=== PATIENT | female | born 1940 | race Caucasian/White ===

== ENCOUNTER 2017-01-22 09:40 | Emergency (ER) | payer MEDICARE, OTHER ==
[~2017-01-22] VITALS: Ht 149.9 cm; Wt 65.0 kg
[2017-01-22 09:50] VITALS: Ht 149.9 cm; Wt 65.0 kg
[2017-01-22] MEDS ORDERED: EPINEPHrine 1 MG INJ IM STA (09:52)
[2017-01-22] MEDS ORDERED: FAMOTIDINE 20 MG INJ IV STA (09:52)
[2017-01-22] MEDS ORDERED: METHYLPREDNISOLONE 125 MG INJ IV STA (09:52)
--- NOTE | 2017-01-22 10:01 | ERD ---
ER Documentation Chief Complaint Chief Complaint Shortness of breath HPI 76-year-old female with a history of hypertension, osteoporosis and anxiety presents to the ED via rescue ambulance for evaluation of shortness of breath. After taking alendronate this morning, she has been taking every 15 days for many years, she experienced acute onset of generalized erythema and pruritus. Daughter gave Benadryl with the patient began to experience worsening shortness of breath and paramedics were called. On arrival her O2 saturation was 80-85% but improved to 98% with supplemental oxygen. She continues to complain of severe, generalized pruritus but denies chest pain or palpitations. No tongue or swelling. No leg pain or swelling. No headache or neck pain. Denies visual changes, focal weakness or numbness. URI symptoms, fevers or chills. ROS All systems reviewed and are negative except as per history of present illness. Medications Home Meds Reported Medications Alendronate Sodium* (Fosamax*) 70 Mg Tablet, 70 MG PO Q7D, #4 TAB 01/22/17 Clopidogrel Bisulfate (Clopidogrel) 75 Mg Tablet, 75 MG PO DAILY, #30 TAB 01/22/17 Amlodipine Besylate* (Amlodipine Besylate*) 10 Mg Tablet, 10 MG PO DAILY, #30 TAB 01/22/17 Simvastatin* (Zocor*) 20 Mg Tablet, 20 MG PO QHS, #30 TAB 01/22/17 Benazepril Hcl* (Benazepril Hcl*) 20 Mg Tablet, 20 MG PO DAILY, #30 TAB 01/22/17 Metoprolol Succinate* (Toprol XL*) 50 Mg Tab.er.24h, 50 MG PO DAILY, #30 TAB 01/22/17 Discontinued Reported Medications Clopidogrel Bisulfate (Clopidogrel) 75 Mg Tablet, 75 MG PO DAILY, #30 TAB 01/22/17 Allergies Allergies: Coded Allergies: No Known Allergy (Unverified , 01/22/17) PMhx/Soc Reviewed in chart. As per HPI. Lives with family. History of Surgery: No Anesthesia Reaction: No Hx Neurological Disorder: No Hx Respiratory Disorders: No Hx Cardiac Disorders: Yes (Hypertension) Hx Psychiatric Problems: No Hx Miscellaneous Medical Probl: Yes (Osteoporosis) Hx Alcohol Use: No Hx Substance Use: No Hx Tobacco Use: No FmHx No family history relevant to presenting complaint. Physical Exam Vitals Vital Signs Date Time Temp Pulse Resp B/P Pulse Ox O2 Delivery O2 Flow Rate FiO2 01/22/17 12:39 78 18 121/59 98 Room Air 01/22/17 10:12 Nasal Cannula 2.0 01/22/17 09:50 98.1 53 16 72/44 93 Physical Exam Const: Alert, severe distress Head: Atraumatic Eyes: Normal Conjunctiva. No chemosis. No periorbital swelling. ENT: Normal External Ears, Nose and Mouth. No lip, tongue or uvular swelling. Neck: Full range of motion. Nontender. No stridor. Resp: Bs are equal and clear to auscultation bilaterally Cardio: Regular rate and rhythm, no murmurs Abd: Soft, obese, non tender, non distended. Normal bowel sounds Skin: diffuse erythema but no rash or urticaria Back: No midline or flank tenderness Ext: No cyanosis, or edema Neur: Awake and alert. No focal deficit observed Psych: Cooperative, anxious Result Diagram: 01/22/17 1002 01/22/17 1002 Results 24 hrs Laboratory Tests Test 01/22/17 10:02 White Blood Count 5.510^3/ul Red Blood Count 4.9910^6/ul Hemoglobin 13.5g/dl Hematocrit 42.4% Mean Corpuscular Volume 85.0fl Mean Corpuscular Hemoglobin 27.1pg Mean Corpuscular Hemoglobin Concent 31.8g/dl Red Cell Distribution Width 13.2% Platelet Count 51187^3/UL Mean Platelet Volume 11.3fl Neutrophils % 44.2% Lymphocytes % 41.7% Monocytes % 9.4% Eosinophils % 3.6% Basophils % 0.7% Nucleated Red Blood Cells % 0.0/100WBC Neutrophils # 2.410^3/ul Lymphocytes # 2.310^3/ul Monocytes # 0.510^3/ul Eosinophils # 0.210^3/ul Basophils # 0.010^3/ul Nucleated Red Blood Cells # 0.010^3/ul D-Dimer 692.73ng/ml D-Dimer Comment Sodium Level 141mmol/L Potassium Level 3.3mmol/L Chloride Level 107mmol/L Carbon Dioxide Level 22mmol/L Anion Gap 15 Blood Urea Nitrogen 15mg/dl Creatinine 0.90mg/dl Glucose Level 161mg/dl Calcium Level 9.1mg/dl Troponin I < 0.012ng/ml Current Medications Medications (Trade) Dose Ordered Sig/Tom Route PRN Reason Start Time Stop Time Status Last Admin Dose Admin Epinephrine (EPINEPHrine) 0.5 mg ONCE STAT IM 01/22/17 09:52 01/22/17 09:57 DC 01/22/17 10:08 Famotidine (Pepcid Iv) 20 mg ONCE STAT IV 01/22/17 09:52 01/22/17 09:57 DC 01/22/17 10:08 Methylprednisolone Sodium Succinate (Solu-Medrol) 125 mg ONCE STAT IV 01/22/17 09:52 01/22/17 09:57 DC 01/22/17 10:07 Potassium Chloride (Klor-Con 20) 40 meq ONCE STAT PO 01/22/17 11:25 01/22/17 11:27 DC 01/22/17 11:42 Ondansetron HCl (Zofran Inj) 4 mg ER BRIDGE PRN IV NAUSEA AND/OR VOMITING 01/22/17 13:30 01/22/17 14:07 DC Acetaminophen (Tylenol Tab) 650 mg ER BRIDGE PRN PO MILD PAIN/FEVER 01/22/17 13:30 01/22/17 14:07 DC LABS: Mild hypokalemia otherwise unremarkable EKG: TIME: 10:18. Sinus bradycardia. Ventricular rate 46. Normal VT and QRS. Q waves in leads I, aVL, V1 and V2. No acute ST segment elevation or depression. No ectopy. EP Interpretation: Abnormal EKG. IMAGING: PROCEDURE: Chest x-ray CLINICAL INDICATION: Shortness of breath TECHNIQUE: Chest single view COMPARISON: None FINDINGS: There is mild cardiomegaly and moderate atherosclerotic aortic calcification.. The pulmonary vessels are normal in caliber. The lungs are clear. The costophrenic angles are sharp. The visualized bony thorax is unremarkable. IMPRESSION: No acute cardiopulmonary disease. Mild cardiomegaly and moderate atherosclerotic aortic calcification RPTAT: HH .Jr Dyer MD, Date Time Electronically viewed and signed by .Jr Dyer MD, on 01/22/2017 10:20 .W/ PROCEDURE: US Lower extremity Venous. CLINICAL INDICATION: Swelling and pain TECHNIQUE: Multiple sonographic images of the bilateral lower extremity deep venous system was obtained utilizing grayscale, color-flow, compressive sonography and doppler imaging with augmentation. The images were reviewed on a PACS workstation. COMPARISON: None. FINDINGS: There is normal compressibility and flow within the bilateral common femoral, deep femoral, superficial femoral, posterior tibial, peroneal and popliteal veins. IMPRESSION: 1. No sonographic evidence for deep venous thrombosis within the bilateral lower extremities. RPTAT: AAPP Physician Miguel Date Time Electronically viewed and signed by Physician Miguel on 01/22/2017 13:08 JL/ Procedures/MDM DOCUMENTS REVIEWED: ED nurse, no prior records REEXAMINATION/REEVALUATION: Time: 14:30. Doing well. Blood pressure 120/85. Saturation 96% on room air. Pruritus resolved. MEDICAL DECISION MAKIN-year-old female with a history of hypertension, osteoporosis and anxiety presents to the ED via rescue ambulance for evaluation of shortness of breath. Symptoms began after taking Fosamax which she has been using for many years. Patient presented with diffuse pruritis, hypotension, dyspnea and hypoxia but responded dramatically to intravenous hydration, epinephrine, Solu-Medrol and H1/H2 blockers. Pulmonary embolism considered but venous Dopplers are negative. No acute ischemic EKG changes, chest pain, elevated troponin or other signs of acute coronary syndrome. Chest x-ray reveals mild cardiomegaly but no effusions, infiltrates or signs of congestive heart failure or pneumonia. Mild hypokalemia replaced orally. Patient will be admitted to telemetry observation for further evaluation and management. Counseled patient and family regarding diagnosis, diagnostic results and plan for admission. CRITICAL CARE TIME: Due to the high probability of sudden clinically significant cardiovascular, hemodynamic, respiratory and airway deterioration, this patient with hypoxia, hypotension due to anaphylaxis required multiple, frequent reevaluations of vital signs and response to therapy. Additional critical care time was spent in obtaining supplemental history from family and EMS and consultation with the admitting physician Dr. Mejia. TOTAL CRITICAL CARE TIME: 35 minutes not including other separately reportable procedures. CALLS/CONSULTS: Time 13:00, Dr. Mejia, agrees with plan for admission to telemetry observation. PATIENT CARE TRANSITIONED: Time: 13:05, Dr. Mejia. Departure Diagnosis: Primary Impression: Acute dyspnea Additional Impressions: Acute anaphylaxis Encounter type: initial encounter Qualified Code: T78.2XXA - Acute anaphylaxis, initial encounter Hypotension Hypotension type: unspecified hypotension type Qualified Code: I95.9 - Hypotension, unspecified hypotension type Hypoxia Condition: Serious MITESH BACA MD Jan 22, 2017 10:01
--- NOTE | 2017-01-22 10:20 | RADRPT ---
PROCEDURE: Chest x-ray CLINICAL INDICATION: Shortness of breath TECHNIQUE: Chest single view COMPARISON: None FINDINGS: There is mild cardiomegaly and moderate atherosclerotic aortic calcification.. The pulmonary vessel s are normal in caliber. The lungs are clear. The costophrenic angles are sharp. The visualized b carolyne thorax is unremarkable. IMPRESSION: No acute cardiopulmonary disease. Mild cardiomegaly and moderate atherosclerotic aortic calcification RPTAT: HH .Jr Dyer MD, MD Date Time Electronically viewed and signed by .Jr Dyer MD, on 01/22/2017 10:20 .W/
[2017-01-22 10:21] LABS: BASOPHILS % 0.7 % (0.0-2.0); EOSINOPHILS # 0.2 10^3/ul (0.0-0.5); EOSINOPHILS % 3.6 % (0.0-7.0); HEMATOCRIT 42.4 % (37.0-47.0); HEMOGLOBIN 13.5 g/dl (12.0-16.0); LYMPHOCYTES # 2.3 10^3/ul (0.8-2.9); LYMPHOCYTES % 41.7 % (15.0-51.0); MEAN CORPUSCULAR HEMOGLOBIN 27.1 pg (29.0-33.0); MEAN CORPUSCULAR HGB CONC 31.8 g/dl (32.0-37.0); MEAN PLATELET VOLUME 11.3 fl (7.4-10.4); MONOCYTE # 0.5 10^3/ul (0.3-0.9); MONOCYTES % 9.4 % (0.0-11.0); NEUTROPHIL # 2.4 10^3/ul (1.6-7.5); NEUTROPHILS % 44.2 % (39.0-77.0); PLATELET COUNT 268 10^3/UL (140-415); RED BLOOD COUNT 4.99 10^6/ul (4.20-5.40); RED CELL DISTRIBUTION WIDTH 13.2 % (11.5-14.5); WHITE BLOOD COUNT 5.5 10^3/ul (4.8-10.8)
[2017-01-22 10:54] LABS: ANION GAP 15 (8-16); BLOOD UREA NITROGEN 15 mg/dl (7-20); CALCIUM 9.1 mg/dl (8.4-10.2); CARBON DIOXIDE 22 mmol/L (21-31); CHLORIDE 107 mmol/L (97-110); GLUCOSE 161 mg/dl (70-220); POTASSIUM 3.3 mmol/L (3.5-5.1); SODIUM 141 mmol/L (135-144)
[2017-01-22 11:11] LABS: TROPONIN-I < 0.012 ng/ml (0.00-0.12)
[2017-01-22] MEDS ORDERED: METO-319 PO (11:19)
[2017-01-22] MEDS ORDERED: BENA20TA48 PO (11:19)
[2017-01-22] MEDS ORDERED: AMLO-147 PO (11:20)
[2017-01-22] MEDS ORDERED: SIMV20TA PO (11:20)
[2017-01-22] MEDS ORDERED: CLOP75TA27 PO ×2 (11:20→11:21)
[2017-01-22] MEDS ORDERED: ALEN70TA30 PO (11:21)
[2017-01-22] MEDS ORDERED: POTASSIUM CHLORIDE (SR) 20 MEQ TAB PO STA (11:25)
[2017-01-22 11:38] LABS: D-DIMER 692.73 ng/ml (<460)
[2017-01-22 12:39] VITALS: BP 121/59; PULSE 78; RESP 18
--- NOTE | 2017-01-22 13:09 | RADRPT ---
PROCEDURE: US Lower extremity Venous. CLINICAL INDICATION: Swelling and pain TECHNIQUE: Multiple sonographic images of the bilateral lower extremity deep venous system was obt ained utilizing grayscale, color-flow, compressive sonography and doppler imaging with augmentation. The images were reviewed on a PACS workstation. COMPARISON: None. FINDINGS: There is normal compressibility and flow within the bilateral common femoral, deep femoral, superfic ial femoral, posterior tibial, peroneal and popliteal veins. IMPRESSION: 1. No sonographic evidence for deep venous thrombosis within the bilateral lower extremities. RPTAT: AAPP Physician Miguel Date Time Electronically viewed and signed by Physician Miguel on 01/22/2017 13:08 DUSTIN/
[2017-01-22] MEDS ORDERED: ACETAMINOPHEN 325 MG TAB PO PRN (13:30)
[2017-01-22] MEDS ORDERED: ONDANSETRON 4 MG INJ IV PRN (13:30)
--- NOTE | 2017-01-22 14:00 | QN ---
Documentation Comment Examined patient at bedside and what it seems like patient possibly had an allergic reaction-unknown source, but started soon after her taking Fosamax. Patient was treated with epi, Solu-Medrol, and Pepcid. Allergic reaction completely resolved. There is no further rashes, desaturation, hypotension, wheezing or shortness of breath. Patient wanted to be discharged home. I have advised the patient of staying hospital overnight for observation which she is not receptive to it at this time. Upon review of home medications with patient and family, patient takes metoprolol and nifedipine for blood pressure management at home. However, in the EMR, lisinopril also listed as home medication which patient is not sure about it. Patient and family believed that allergy happened after patient took her Fosamax dose. However, patient is been on this medication for years. Patient decided to sign AGAINST MEDICAL ADVICE and reported that she will come back to the emergency room if her condition changes. I also discussed patient's condition with her son at bedside with the benefit for staying overnight. Patient's son also wants to take patient home and in the event that if patient develops any further symptoms, they will bring her back to the emergency room for evaluation. I have also informed the patient to hold lisinopril if she is taking it at home and to have primary care follow-up on next working day. I have also discussed this with the ER doctor . Despite our efforts, patient had decided to leave AGAINST MEDICAL ADVICE. Patient has normal mental status and full decisional capacity. She understood her condition and the risk of leaving AMA, including but not limited to permanent disability, etc., and she had an opportunity to ask questions about her medical condition. The patient has been informed that she may return for care anytime and has been referred to her primary care provider for follow- up as soon as possible. Case discussed with KAPIL Moreno NP Jan 22, 2017 14:00
== END 2017-01-22 14:07 | disposition home or self-care (01) ==
LOC: E/R 09:40
DX: T78.2XXA Anaphylactic shock, unspecified, initial encounter (principal); I95.9 Hypotension, unspecified; R06.09 Other forms of dyspnea; R09.02 Hypoxemia; I10 Essential (primary) hypertension
CPT/HCPCS: 71010; 80048; 84484; 85025; 85378; 93005; 93970; 96372; 96374; 96375; 99285; J0171; J2930